=== PATIENT | male | born 1975 | race Caucasian/White ===

== ENCOUNTER 2017-04-08 14:25 | Emergency (ER) | payer MEDICARE, SELFPAY ==
[~2017-04-08 14:25] MED LIST: ARIP10; ARIP20 PO; ASCO500 PO; Ativan1 MG PO; Baclofen10 MG PO; CEPH500 PO; CYCL10 PO; HYDACE10B PO; HYDACE5 PO; HYDR1TAB94 PO; Hydrocodone-Ap1 EA20 PO; IBUP600 PO; IBUP800 PO; LISI20 PO; META800 PO; METO25ER; METPRE4DP PO; MIRT15; NAPR500 PO; Naprosyn500 MG PO; Norco 10-325 T1 EACH PO; Norco 5-325 Ta1 EACH PO; OXYACE5T PO; Omeprazole20 M1 PO; RXCYCL10 PO; RXHYDACE PO; Simvastatin20 MG PO; TRAZ50 PO; Ultram50 MG PO; VITAMIN D3400 UNIT PO; Veetids 500500 MG PO; Vitamin B-12250 MCG PO
== END 2017-04-08 16:34 | disposition left against medical advice (07) ==
LOC: ER 14:25
DX: Z53.21 Procedure and treatment not carried out due to patient leaving prior to being seen by health care provider (principal)

== ENCOUNTER → 2018-05-29 | Outpatient (CLI) | payer MEDICARE, OTHER | END | disposition home or self-care (01) | LOC: LAB 07:22 → PLD 07:22 → LAB SHORT 07:22 | DX: L85.8 Other specified epidermal thickening (principal) | CPT/HCPCS: 88305 ==

== ENCOUNTER 2018-06-17 15:55 | Emergency (ER) | payer MEDICARE, OTHER ==
[~2018-06-17] VITALS: Ht 188 cm; Wt 121.6 kg
[2018-06-17] MEDS ORDERED: LOSARTAN-HCTZ1 EACH PO (16:05)
[2018-06-17] MEDS ORDERED: METF500C PO (16:05)
[2018-06-17] MEDS ORDERED: GABA300 PO (16:06)
[2018-06-17] MEDS ORDERED: HYDR1TAB94 PO (16:09)
[2018-06-17] MEDS ORDERED: LIDO700A20 TOP (16:09)
== END 2018-06-17 16:16 | disposition home or self-care (01) ==
LOC: ER 15:55
DX: M62.830 Muscle spasm of back (principal); G89.29 Other chronic pain; Z79.899 Other long term (current) drug therapy; Z79.84 Long term (current) use of oral hypoglycemic drugs; F31.9 Bipolar disorder, unspecified; Z87.891 Personal history of nicotine dependence
CPT/HCPCS: 99282

== ENCOUNTER 2018-06-19 08:19 | Emergency (ER) | payer MEDICARE, OTHER ==
[~2018-06-19] VITALS: Ht 188 cm; Wt 120.2 kg
[~2018-06-19 08:19] MED LIST changes: +GABA300 PO; +LIDO700A20 TOP; +LOSARTAN-HCTZ1 EACH PO; +METF500C PO
[2018-06-19] MEDS ORDERED: Robaxin-750750 MG PO (09:16)
[2018-06-19] MEDS ORDERED: Percocet 5-3251 EACH PO (09:16)
[2018-06-19] MEDS ORDERED: LIDO700A20 TOP (09:16)
[2018-06-19] MEDS ORDERED: PRED10 PO (09:16)
== END 2018-06-19 09:27 | disposition home or self-care (01) ==
LOC: ER 08:19
DX: G89.29 Other chronic pain (principal); M54.5 Low back pain; F31.9 Bipolar disorder, unspecified; Z87.891 Personal history of nicotine dependence
CPT/HCPCS: 96374; 99283-25; J1885

== ENCOUNTER 2018-07-20 09:09 | Emergency (ER) | payer MEDICARE, OTHER ==
[~2018-07-20] VITALS: Ht 188 cm; Wt 122.5 kg
[~2018-07-20 09:09] MED LIST changes: -ARIP20 PO; +Abilify5 MG PO; +PRED10 PO; +Percocet 5-3251 EACH PO; +Robaxin-750750 MG PO
[2018-07-20] MEDS ORDERED: Norco 7.5-3251 EACH PO (09:52)
[2018-07-20] MEDS ORDERED: CYCL10 PO (09:52)
== END 2018-07-20 09:59 | disposition home or self-care (01) ==
LOC: ER 09:09
DX: G89.29 Other chronic pain (principal); M54.5 Low back pain; F31.9 Bipolar disorder, unspecified; E78.5 Hyperlipidemia, unspecified; Z79.899 Other long term (current) drug therapy; Z87.891 Personal history of nicotine dependence
CPT/HCPCS: 96372; 99283-25; J1885

== ENCOUNTER 2018-09-19 14:53 | Emergency (ER) | payer MEDICARE, OTHER ==
[~2018-09-19] VITALS: Ht 188 cm; Wt 131.5 kg
[~2018-09-19 14:53] MED LIST changes: +Norco 7.5-3251 EACH PO
[2018-09-19] MEDS ORDERED: LOSARTAN-HCTZ1 EACH PO (15:43)
[2018-09-19] MEDS ORDERED: Amaryl1 MG PO (15:43)
[2018-09-19] MEDS ORDERED: ARIPIPRAZOLE5 MG PO (15:43)
[2018-09-19] MEDS ORDERED: ESCI5 PO (15:44)
[2018-09-19] MEDS ORDERED: Zocor20 MG PO (15:44)
[2018-09-19] MEDS ORDERED: METF500 (15:44)
[2018-09-19] MEDS ORDERED: Neurontin 300300 MG GT (15:44)
[2018-09-19] MEDS ORDERED: CYCL10 PO (15:45)
[2018-09-19] MEDS ORDERED: Ultram50 MG PO (15:55)
== END 2018-09-19 15:57 | disposition home or self-care (01) ==
LOC: ER 14:53
DX: G89.29 Other chronic pain (principal); M62.830 Muscle spasm of back; Z79.899 Other long term (current) drug therapy; Z79.84 Long term (current) use of oral hypoglycemic drugs; F31.9 Bipolar disorder, unspecified; I10 Essential (primary) hypertension; E78.5 Hyperlipidemia, unspecified; Z87.891 Personal history of nicotine dependence
CPT/HCPCS: 36415; 80053; 80061; 82043; 82570; 83036; 84439; 84443; 85025; 96372; 99282-25; J1885

== ENCOUNTER 2018-11-29 11:17 | Emergency (ER) | payer MEDICARE, OTHER ==
[~2018-11-29] VITALS: Ht 188 cm; Wt 127.0 kg
[~2018-11-29 11:17] MED LIST changes: +ARIPIPRAZOLE5 MG PO; +Amaryl1 MG PO; +ESCI5 PO; +METF500; +Neurontin 300300 MG GT; +Zocor20 MG PO
[2018-11-29] MEDS ORDERED: Norco 7.5-3251 EACH PO (12:45)
[2018-11-29] MEDS ORDERED: CYCL10 PO (12:45)
== END 2018-11-29 13:04 | disposition home or self-care (01) ==
LOC: ER 11:17
DX: G89.29 Other chronic pain (principal); M54.5 Low back pain; Z79.899 Other long term (current) drug therapy; Z79.84 Long term (current) use of oral hypoglycemic drugs; F32.9 Major depressive disorder, single episode, unspecified; F31.9 Bipolar disorder, unspecified; Z87.891 Personal history of nicotine dependence
CPT/HCPCS: 99283

== ENCOUNTER 2020-07-13 11:21 | Emergency (ER) | payer MEDICARE ==
[~2020-07-13] VITALS: Ht 182.9 cm; Wt 113.4 kg
[2020-07-13] MEDS ORDERED: CYCL10 PO (12:03)
[2020-07-13] MEDS ORDERED: METPRE4DP PO (12:03)
== END 2020-07-13 12:20 | disposition home or self-care (01) ==
LOC: ER 11:21
DX: M54.5 Low back pain (principal); G89.29 Other chronic pain; Z79.84 Long term (current) use of oral hypoglycemic drugs; Z79.899 Other long term (current) drug therapy
CPT/HCPCS: 99283; J7512

== ENCOUNTER 2020-08-31 12:18 | Emergency (ER) | payer MEDICARE, SELFPAY ==
[~2020-08-31] VITALS: Ht 188 cm; Wt 122.5 kg
[2020-08-31] MEDS ORDERED: MOTRIN IB200 MG (13:50)
[2020-08-31] MEDS ORDERED: ACET325 (13:50)
[2020-08-31] MEDS ORDERED: Crestor20 MG (13:53)
[2020-08-31] MEDS ORDERED: Norco 5-325 Ta1 EACH PO (14:01)
== END 2020-08-31 14:08 | disposition home or self-care (01) ==
LOC: ER 12:18
DX: M51.26 Other intervertebral disc displacement, lumbar region (principal); I10 Essential (primary) hypertension; E78.5 Hyperlipidemia, unspecified; Z79.84 Long term (current) use of oral hypoglycemic drugs; Z79.899 Other long term (current) drug therapy; Z87.891 Personal history of nicotine dependence
CPT/HCPCS: 99283

== ENCOUNTER 2020-10-09 13:48 | Emergency (ER) | payer MEDICARE ==
[~2020-10-09] VITALS: Ht 188 cm; Wt 122.5 kg
[~2020-10-09 13:48] MED LIST changes: +ACET325; +Crestor20 MG; +MOTRIN IB200 MG
[2020-10-09] MEDS ORDERED: Norco 10-325 T1 EACH PO (16:13)
== END 2020-10-09 16:22 | disposition home or self-care (01) ==
LOC: ER 13:48
DX: M51.26 Other intervertebral disc displacement, lumbar region (principal); G89.29 Other chronic pain; Z79.899 Other long term (current) drug therapy; Z79.84 Long term (current) use of oral hypoglycemic drugs; Z87.891 Personal history of nicotine dependence
CPT/HCPCS: 96372; 99283-25; J1885

== ENCOUNTER 2022-04-18 16:14 | Emergency (ER) | payer MEDICARE ==
[~2022-04-18] VITALS: Ht 188 cm; Wt 127.0 kg
[~2022-04-18 16:14] MED LIST changes: +ACET500 PO; +CODACE30 PO; +IBUP400 PO; +PIOGLITAZONE HC15 MG PO; +ROSUVASTATIN CA20 MG PO; +Robaxin750 MG PO; +[UNRECOGNIZED DRUG - CODE] PO
== END 2022-04-18 17:49 | disposition home or self-care (01) ==
LOC: ER 16:14
DX: M54.50 Low back pain, unspecified (principal); I10 Essential (primary) hypertension; E78.5 Hyperlipidemia, unspecified; E11.9 Type 2 diabetes mellitus without complications; F17.200 Nicotine dependence, unspecified, uncomplicated; Z79.84 Long term (current) use of oral hypoglycemic drugs; Z79.899 Other long term (current) drug therapy
CPT/HCPCS: 99282

== ENCOUNTER 2024-01-24 19:50 | Emergency (ER) | payer OTHER ==
[~2024-01-24] VITALS: Ht 190.5 cm; Wt 127.0 kg
[2024-01-24 19:55] VITALS: BP 175/104
[2024-01-24] MEDS ORDERED: TRAM50 (20:00)
== END 2024-01-24 20:26 | disposition home or self-care (01) ==
LOC: ER 19:50
DX: S01.01XA Laceration without foreign body of scalp, initial encounter (principal); W22.8XXA Striking against or struck by other objects, initial encounter; E78.5 Hyperlipidemia, unspecified; I10 Essential (primary) hypertension; E11.9 Type 2 diabetes mellitus without complications; F17.200 Nicotine dependence, unspecified, uncomplicated; Z79.84 Long term (current) use of oral hypoglycemic drugs; Z79.899 Other long term (current) drug therapy
CPT/HCPCS: 12001; 99282-25

== ENCOUNTER 2024-07-14 16:43 | Emergency (ER) | payer OTHER ==
[~2024-07-14] VITALS: Ht 190.5 cm; Wt 127.9 kg
[~2024-07-14 16:43] MED LIST changes: +TRAM50
[2024-07-14 17:06] VITALS: BP 169/102
[2024-07-14 17:45] LABS: BASOPHILS ABSOLUTE AUTO 0.06 K/mm3 (0.00-0.23); BASOPHILS PERCENT AUTO 0 % (0-2); EOSINOPHILS ABSOLUTE AUTO 0.18 K/mm3 (0.00-0.68); EOSINOPHILS PERCENT AUTO 1 % (0-6); Hematocrit 39.4 % (37.0-53.0); Hemoglobin 13.4 g/dL (13.5-17.5); IMMATURE GRAN ABSOLUTE AUTO 0.08 K/mm3 (0.00-0.10); IMMATURE GRAN PERCENT AUTO 1 % (0-1); LYMPHOCYTES ABSOLUTE AUTO 1.61 K/mm3 (0.84-5.20); LYMPHOCYTES PERCENT AUTO 12 % (21-46); MONOCYTES ABSOLUTE AUTO 1.28 K/mm3 (0.16-1.47); MONOCYTES PERCENT AUTO 9 % (4-13); Mean Corpuscular HGB 29.1 pg (26.0-34.0); Mean Corpuscular Volume 86 fL (80-100); Mean Platelet Volume 9.3 fL (9.1-12.4); NEUTROPHILS ABSOLUTE AUTO 10.64 K/mm3 (1.96-9.15); NEUTROPHILS PERCENT AUTO 77 % (41-73); Platelet Count 279 K/mm3 (150-400); RDW Coefficient Variation 12.3 % (11.7-14.2); RDW Standard Deviation 38.1 fL (35.1-46.3); Red Blood Cell Count 4.61 M/mm3 (4.30-5.90); White Blood Cell Count 13.85 K/mm3 (4.00-11.30)
[2024-07-14 18:19] LABS: Bilirubin, Total 0.6 mg/dL (0.1-1.0); Bun/Creatinine Ratio 14.7 (12.0-20.0); Calcium, Blood 9.2 mg/dL (8.5-10.1); Creatinine, Blood 0.68 mg/dL (0.60-1.20); Potassium, Blood 4.1 mmol/L (3.5-5.5)
[2024-07-14] MEDS ORDERED: NS 1,000 ML IV SCH (20:05)
[2024-07-14] MEDS ORDERED: Morphine Sulfate 4 MG/1 ML Injection IV ONE ×2 (20:05→22:30)
[2024-07-14] MEDS ORDERED: Ondansetron HCl 2 MG / ML 2ML Vial IV ONE (20:05)
[2024-07-14] MEDS ORDERED: AMOCLA875 PO (22:33)
[2024-07-14] MEDS ORDERED: HYDR1TAB94 PO (23:11)
[2024-07-14] MEDS ORDERED: RX Prepack 6 Tabs Oxycodone 5mg UD ONE (23:20)
[2024-07-14] MEDS ORDERED: Amoxicillin/Clavulanate K 875 MG Tab PO ONE (23:20)
== END 2024-07-14 23:40 | disposition home or self-care (01) ==
LOC: ER 16:43
PROVIDERS: Student in an Organized Health Care Education/Training Program
DX: L02.215 Cutaneous abscess of perineum (principal); K61.2 Anorectal abscess; Z87.891 Personal history of nicotine dependence; I10 Essential (primary) hypertension; E78.5 Hyperlipidemia, unspecified; E11.9 Type 2 diabetes mellitus without complications; Z79.899 Other long term (current) drug therapy; Z79.51 Long term (current) use of inhaled steroids; Z79.890 Hormone replacement therapy; Z79.52 Long term (current) use of systemic steroids; Z79.83 Long term (current) use of bisphosphonates
CPT/HCPCS: 46040; 72193; 80053; 85025; 96361-59; 96374-59; 96375-59; 99283-25; A9270; J2270; J2405; J7030; Q9967